=== PATIENT | male | born 1990 | race Hispanic/Latino ===

== ENCOUNTER 2017-08-02 22:37 | Emergency (ER) | payer OTHER ==
[2017-08-03] MEDS ORDERED: KETOROLAC TROMETHAMINE 60 MG/2 ML VIAL ONE ×2 (00:02→00:06)
== END 2017-08-03 00:15 | disposition home or self-care (01) ==
LOC: EDH 22:37
DX: M25.531 Pain in right wrist (principal)
CPT/HCPCS: 29125; 96372; 99283; J1885